=== PATIENT | female | born 1985 | race Caucasian/White ===

== ENCOUNTER 2024-11-04 08:32 | Emergency (ER) | payer OTHER, SELFPAY ==
[2024-11-04 08:47] VITALS: BP 99/61
--- NOTE | 2024-11-04 10:13 | ED.SKININJ ---
HPI-Injury
General
Chief Complaint: Skin Surface Trauma
Source: patient
Exam Limitations: none
Time Seen by Provider: 11/04/24 10:06
History of Present Illness-Injury
Initial Injury comments:
39-year-old [id number] female presents with lacerations to right hand she sustained 24 hours ago. She was reaching inside a snowblower that was not turned on to try to clean it out and scraped her hand against the sharp metal. Last
tetanus is unknown. She has been doing local wound care. She notes swelling and pain. No other complaints.
Phy Exam
Physical Exam
Physical Exam:
General: Well-appearing female no acute respiratory distress
HEENT: Normocephalic atraumatic
Skin: Multiple puncture wounds/lacerations to the right hand largest 1 measures 1 cm in the webspace between the middle and ring finger dorsally. There is some healing tissue. There is mild surrounding swelling without erythema no drainage. She
has full range of motion of the right hand. The fingers are not swollen
Course
Orders/Labs/Results
Orders:
Orders
11/04/24 10:12
Tetanus/Diphth/Acelpertussis [Adacel] 0.5 ml IM .ONCE ONE
CR Hand - Right Min 3 Views Urgent
Comment:
Reason For Exam: laceration
11/04/24 10:14
Cephalexin Monohydrate [Keflex] 500 mg PO NOW STA
Vital Signs
Initial and Last Documented VS:
Initial Vital Signs
Temp Pulse Resp BP Pulse Ox
98.3 F 80 18 99/61 99
11/04/24 08:47 11/04/24 08:47 11/04/24 08:47 11/04/24 08:47 11/04/24 08:47
Last Documented Vital Signs
Temp Pulse Resp BP Pulse Ox
98.3 F 80 18 99/61 99
11/04/24 08:47 11/04/24 08:47 11/04/24 08:47 11/04/24 08:47 11/04/24 08:47
MDM/Problems Addressed
Differential Diagnosis Includes:
Laceration to right hand from rubbing against sharp metal while cleaning out a snowblower. Will obtain x-ray of hand to evaluate for any bony injury. At this point due to the elapsed time since injury it is not indicated for any suture closure.
The wounds were irrigated with saline. Tetanus vaccine updated. Will start an antibiotic
*Critical Care Note
Total Time (30-74mins, 75-104mins- exclusive of procedures): Not Applicable
Update Note
Update Note:
X-ray right hand negative for fracture. The wounds were dressed. Will start on Keflex. Wound care instructions were given. Stable for discharge
ED Attending Note
-
Portions of this chart may have been created with voice recognition software.� Occasional wrong word or��sound alike� substitutions may have occurred due to the inherent limitations of voice recognition software.
Discharge Plan
Departure
Patient Disposition: Home (Routine Discharge)
Date of Disposition: 11/04/24
Time of Disposition: 10:58
Patient with high blood pressure during this ER visit?: No
Discharge Problem:
Laceration
Instructions: Wound Care (DC)
Prescriptions:
New
cephalexin 500 mg capsule
500 mg PO TID 7 Days Qty: 21 0RF
Activity Restrictions/Additional Instructions:
Change dressing daily. Use antibiotics as directed. Return here if needed otherwise follow-up with your doctor
Interventions
Interventions:
*Risk Screen - Suicide Last Done: 11/04/24 08:47
*General Assessment Last Done: 11/04/24 08:47
*Neglect/Abuse Screening Last Done: 11/04/24 08:47
*ED COVID-19 Vaccine History Last Done: 11/04/24 08:47
ED-Skin Assessment Last Done: 11/04/24 10:10
Discharge Date and Time
Print Language: THAI
[2024-11-04] MEDS: ADACEL 0.5 ML IM (10:19)
[2024-11-04] MEDS: KEFLEX 500 MG PO (10:20)
== END 2024-11-04 11:29 | disposition home or self-care (01) ==
LOC: EMR 08:32
PROVIDERS: EMERGENCY PHYSICIAN Emergency Medicine; FAMILY PHYSICIAN Family Medicine
DX: S61.411A Laceration without foreign body of right hand, initial encounter (principal); W29.8XXA Contact with other powered hand tools and household machinery, initial encounter; Z23 Encounter for immunization
CPT/HCPCS: 90471; 99283; 73130; 90715